=== PATIENT | male | born 1945 | race Caucasian/White ===

== ENCOUNTER 2021-07-06 01:17 | Emergency (ER) | payer MEDICARE ==
--- NOTE | 2021-07-06 01:46 | EDM.PDOC ---
<Trace Diaz - Last Filed: 07/06/21 07:31> ED HPI GENERAL MEDICAL PROBLEM - General Chief Complaint: Chest Pain Stated Complaint: CHEST PAINS Time Seen by Provider: 07/06/21 01:27 Source of Information: Reports: Patient, Family History Limitations: Reports: No Limitations - History of Present Illness INITIAL COMMENTS - FREE TEXT/NARRATIVE: Ian is a 76-year-old male presenting to the ED for evaluation of retrosternal chest pressure that started around 1800 hrs. today. The patient states that the pain is been fairly continuous although waxing and waning in intensity since the onset. Its not associated with any diaphoresis, nausea, or significant shortness of breath. The pain did seem to worsen when he reclined this evening. His took his blood pressure at home and it was quite high prompting them to come in for evaluation after talking to the nurse triage line. The patient has not seen a doctor for many years with the exception of a recent visit to the walk-in clinic after he had a dental procedure that had to be aborted because of hypertension. He is currently on no medications but did take 2 full size aspirin prior to coming in this evening. 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 At that time was also discovered that he had a systolic ejection murmur. Middle Chest Pain Score (Numeric/FACES): 4 - Related Data Allergies Allergy/AdvReac Type Severity Reaction Status Date / Time No Known Allergies Allergy Verified 07/06/21 01:50 Home Meds: Home Meds NK [No Known Home Meds] 03/05/18 [History] Past Medical History Musculoskeletal History: Reports: Neck Pain, Chronic Dermatologic History: Reports: Psoriasis Social & Family History - Caffeine Use Caffeine Use: Reports: Coffee, Soda, Tea ED ROS GENERAL - Review of Systems Review Of Systems: See Below Constitutional: Reports: No Symptoms HEENT: Reports: No Symptoms Respiratory: Reports: No Symptoms Cardiovascular: Reports: Chest Pain, Blood Pressure Problem Endocrine: Reports: No Symptoms GI/Abdominal: Reports: No Symptoms : Reports: No Symptoms Musculoskeletal: Reports: No Symptoms Skin: Reports: No Symptoms Neurological: Reports: No Symptoms Psychiatric: Reports: No Symptoms Hematologic/Lymphatic: Reports: No Symptoms Immunologic: Reports: No Symptoms ED EXAM, GENERAL - Physical Exam Exam: See Below Exam Limited By: No Limitations General Appearance: Alert, No Apparent Distress, Anxious Eye Exam: Bilateral Eye: EOMI, PERRL Nose: Normal Inspection Throat/Mouth: Normal Oropharynx, Normal Voice, No Airway Compromise Head: Atraumatic, Normocephalic Neck: Normal Inspection, Supple. No: Lymphadenopathy (R), Lymphadenopathy (L) Respiratory/Chest: No Respiratory Distress, Lungs Clear, Normal Breath Sounds, No Accessory Muscle Use. No: Crackles, Rales, Rhonchi, Wheezing Cardiovascular: Normal Peripheral Pulses, Regular Rate, Rhythm, Systolic Murmur (2/6 systolic ejection murmur heard in the left upper sternal border) Peripheral Pulses: 2+: Radial (L), Radial (R) GI/Abdominal: Normal Bowel Sounds, Soft, Non-Tender Extremities: Normal Inspection, Normal Range of Motion Neurological: Alert, Oriented, Normal Cognition, No Motor/Sensory Deficits Skin Exam: Warm, Dry #1 Interpretation EKG Date: 07/06/21 Time: 01:42 Rhythm: NSR Rate (Beats/Min): 59 Prospect: LAD-Left Prospect Deviation P-Wave: Present (Prolonged WA interval at 214 ms) QRS: Normal (LVH by voltage criteria) ST-T: Normal QT: Normal Comparison: NA - No Prior EKG Course - Re-Assessments/Exams Free Text/Narrative Re-Assessment/Exam: 07/06/21 02:41 reviewed the patient's labs showing a normal CBC with a leukocyte count of 8.9 and normal differential, hemoglobin of 15.8 with hematocrit of 47.6 and a platelet count of 231,000. Comprehensive metabolic panel is also normal with a sodium 141, potassium 4.4, chloride of 103, bicarbonate of 30, BUN of 20 with a creatinine of 0.9 and a glucose of 107. Calcium is 9.2, AST of 27, ALT of 27, and alkaline phosphatase of 59. The PT/INR is 10.3/1.0. The PTT is 24.9. D-dimer is mildly elevated at 574 which is within normal limits with age correction. High-sensitivity troponin resulted back at 740 which is significantly elevated indicating a non-ST elevated SC. Patient was started on IV heparin with a 4000 unit bolus and a rate of 12 units/kg/h and nitroglycerin IV as he still having chest pain at this time. EKG did not show any significant findings for ST elevation. Chest x-ray was reviewed and does not show any significant abnormalities. I did discuss the non-STEMI status with the patient and will continue to look for a suitable location to transfer the patient, however, at this time there are no beds available. He is on the wait list for [facility] and [facility]. 07/06/21 07:31 repeat troponin is now 901 which is still rising from his presentation. Patient is still on the wait list for several facilities as a non-STEMI. Care of the patient will be transferred from Dr. Diaz to Dr. Santacruz at 0730 hrs. while awaiting for transfer of the patient. Departure - Departure Disposition: DC/Tfer to Acute Hospital 02 Clinical Impression: Non-STEMI (non-ST elevated myocardial infarction), Essential hypertension Referrals: PCP,None [Primary Care Provider] - Forms: ED Department Discharge <Cliff Santacruz - Last Filed: 07/06/21 19:47> Past Medical History - Past Health History Medical/Surgical History: Denies Medical/Surgical History Social & Family History - Tobacco Use Tobacco Use Status *Q: Never Tobacco User Course - Vital Signs Last Recorded V/S: Last Vital Signs Temp 98.4 F 07/06/21 15:59 Pulse 61 07/06/21 17:58 Resp 16 07/06/21 18:00 BP 110/57 L 07/06/21 18:00 Pulse Ox 95 07/06/21 18:00 - Orders/Labs/Meds Orders: Active Orders 24 hr Category Date Time Status Chest 2V [CR] Stat Exams 07/06/21 01:27 Taken PTT,PARTIAL THROMBOPLSTIN TIME [COAG] Stat Lab 07/06/21 21:00 Ordered TROPONIN I HIGH SENSITIVITY [CHEM] Stat Lab 07/07/21 01:00 Ordered Heparin Sodium/D5W [Heparin 25,000 Units in D5W 500 ML] Med 07/06/21 02:45 Active 25,000 units in 500 ml IV TITRATE Morphine Med 07/06/21 09:48 Active 2 mg IVPUSH Q2H PRN Nitroglycerin/D5W [Nitroglycerin 25 MG/D5W 250 ML] Med 07/06/21 02:45 Active 25 mg in 250 ml IV TITRATE Sodium Chloride 0.9% [Normal Saline] 1,000 ml Med 07/06/21 03:30 Active IV ASDIRECTED Sodium Chloride 0.9% [Saline Flush] Med 07/06/21 02:35 Active 10 ml FLUSH ASDIRECTED PRN Isolation [COMM] Stat Oth 07/06/21 01:28 Ordered Saline Lock Insert [OM.PC] Routine Oth 07/06/21 02:35 Ordered EKG 12 Lead [EK] Routine Ther 07/06/21 01:27 Ordered Medication Orders Heparin Sodium/Dextrose (Heparin 25,000 Units In D5w 500 Ml) 25,000 units in 500 mls @ 20.088 mls/hr IV TITRATE CALVIN; Protocol Last Titration: 07/06/21 15:29 Dose: 16 units/kg/hr, 26.784 mls/hr Documented by: CHASITY Cosigned by: JAMI Titration: 07/06/21 09:56 Dose: 14 units/kg/hr, 23.436 mls/hr Documented by: CHASITY Cosigned by: ALLA Admin: 07/06/21 02:52 Dose: 12 units/kg/hr, 20.088 mls/hr Documented by: GUSTAVO Cosigned by: COLETTE Nitroglycerin/Dextrose (Nitroglycerin 25 Mg/D5w 250 Ml) 25 mg in 250 mls @ 6 mls/hr IV TITRATE CALVIN; Protocol Last Titration: 07/06/21 09:19 Dose: 3.33 mcg/min, 2 mls/hr Documented by: Titration: 07/06/21 07:46 Dose: 5 mcg/min, 3 mls/hr Documented by: Titration: 07/06/21 03:54 Dose: 3.33 mcg/min, 2 mls/hr Documented by: Admin: 07/06/21 02:50 Dose: 10 mcg/min, 6 mls/hr Documented by: GUSTAVO Sodium Chloride (Normal Saline) 1,000 mls @ 500 mls/hr IV ASDIRECTED CALVIN Morphine Sulfate (Morphine 2 Mg/Ml Syringe) 2 mg IVPUSH Q2H PRN PRN Reason: Pain Last Admin: 07/06/21 09:57 Dose: 2 mg Documented by: CHASITY Sodium Chloride (Sodium Chloride 0.9% 10 Ml Syringe) 10 ml FLUSH ASDIRECTED PRN PRN Reason: Keep Vein Open Last Admin: 07/06/21 02:57 Dose: 10 ml Documented by: GUSTAVO Labs: Laboratory Tests 07/06/21 07/06/21 07/06/21 Range/Units 01:40 01:40 01:40 WBC 8.9 (3.2-11.0) K/uL RBC 5.27 (4.14-5.76) M/uL Hgb 15.8 (12.9-16.9) Hct 47.6 (38.4-49.7) % MCV 90.3 (81.4-99.0) fL MCH 30.0 L (31.6-35.5) pg MCHC 33.2 (31.6-35.5) g/dL Plt Count 231 (130-375) K/uL Immature Gran % (Auto) 0.3 (0.0-0.7) % Neut % (Auto) 47.1 (36-66) % Lymph % (Auto) 38.2 (24-44) % [place] % (Auto) 9.1 H (2-6) % Eos % (Auto) 4.5 H (2-4) % Baso % (Auto) 0.8 (0-1) % Neut # (Auto) 4.20 (1.0-7.6) K/uL Lymph # (Auto) 3.40 H (0.8-3.3) K/uL [place] # (Auto) 0.81 (0.20-0.90) K/uL Eos # (Auto) 0.40 (0.00-0.40) K/uL Baso # (Auto) 0.07 (0.00-0.10) K/uL Immature Gran # (Auto) 0.03 (0.00-0.23) K/uL PT 10.3 (9.2-10.6) sec INR 1.0 APTT 24.9 (21.4-31.8) sec D-Dimer, Quantitative 573.99 H (0.0-500.0) ng/mL Sodium (140-148) mmol/L Potassium (3.6-5.2) mmol/L Chloride (100-108) mmol/L Carbon Dioxide (21-32) mmol/L Anion Gap (5.0-14.0) mmol/L BUN (7-18) mg/dL Creatinine (0.8-1.3) mg/dL Est Cr Clr Drug Dosing mL/min Estimated GFR (MDRD) (>60) Glucose (74-106) mg/dL Calcium (8.5-10.1) mg/dL Total Bilirubin (0.2-1.0) mg/dL AST (15-37) U/L ALT (12-78) U/L Alkaline Phosphatase (46-116) U/L Troponin I High Sens (<=60.3) pg/mL Total Protein (6.4-8.2) g/dL Albumin (3.4-5.0) g/dL Globulin (2.3-3.5) g/dL Albumin/Globulin Ratio (1.2-2.2) Influenza Type A RNA (NEGATIVE) RSV RNA (INAAT) (NEGATIVE) Influenza Type B RNA (NEGATIVE) SARS-CoV-2 RNA (ANETTE) (NEGATIVE) 07/06/21 07/06/21 07/06/21 Range/Units 01:40 01:59 05:40 WBC (3.2-11.0) K/uL RBC (4.14-5.76) M/uL Hgb (12.9-16.9) Hct (38.4-49.7) % MCV (81.4-99.0) fL MCH (31.6-35.5) pg MCHC (31.6-35.5) g/dL Plt Count (130-375) K/uL Immature Gran % (Auto) (0.0-0.7) % Neut % (Auto) (36-66) % Lymph % (Auto) (24-44) % [place] % (Auto) (2-6) % Eos % (Auto) (2-4) % Baso % (Auto) (0-1) % Neut # (Auto) (1.0-7.6) K/uL Lymph # (Auto) (0.8-3.3) K/uL [place] # (Auto) (0.20-0.90) K/uL Eos # (Auto) (0.00-0.40) K/uL Baso # (Auto) (0.00-0.10) K/uL Immature Gran # (Auto) (0.00-0.23) K/uL PT (9.2-10.6) sec INR APTT (21.4-31.8) sec D-Dimer, Quantitative (0.0-500.0) ng/mL Sodium 141 (140-148) mmol/L Potassium 4.4 (3.6-5.2) mmol/L Chloride 103 (100-108) mmol/L Carbon Dioxide 30 (21-32) mmol/L Anion Gap 7.6 (5.0-14.0) mmol/L BUN 20 H (7-18) mg/dL Creatinine 0.9 (0.8-1.3) mg/dL Est Cr Clr Drug Dosing 64.26 mL/min Estimated GFR (MDRD) > 60 (>60) Glucose 107 H (74-106) mg/dL Calcium 9.2 (8.5-10.1) mg/dL Total Bilirubin 0.3 (0.2-1.0) mg/dL AST 27 (15-37) U/L ALT 27 (12-78) U/L Alkaline Phosphatase 59 (46-116) U/L Troponin I High Sens 739.8 H* 908.8 H* (<=60.3) pg/mL Total Protein 7.3 (6.4-8.2) g/dL Albumin 3.8 (3.4-5.0) g/dL Globulin 3.5 (2.3-3.5) g/dL Albumin/Globulin Ratio 1.1 L (1.2-2.2) Influenza Type A RNA Negative (NEGATIVE) RSV RNA (INAAT) Negative (NEGATIVE) Influenza Type B RNA Negative (NEGATIVE) SARS-CoV-2 RNA (ANETTE) Negative (NEGATIVE) 07/06/21 07/06/21 07/06/21 Range/Units 08:56 12:01 14:58 WBC (3.2-11.0) K/uL RBC (4.14-5.76) M/uL Hgb (12.9-16.9) Hct (38.4-49.7) % MCV (81.4-99.0) fL MCH (31.6-35.5) pg MCHC (31.6-35.5) g/dL Plt Count (130-375) K/uL Immature Gran % (Auto) (0.0-0.7) % Neut % (Auto) (36-66) % Lymph % (Auto) (24-44) % [place] % (Auto) (2-6) % Eos % (Auto) (2-4) % Baso % (Auto) (0-1) % Neut # (Auto) (1.0-7.6) K/uL Lymph # (Auto) (0.8-3.3) K/uL [place] # (Auto) (0.20-0.90) K/uL Eos # (Auto) (0.00-0.40) K/uL Baso # (Auto) (0.00-0.10) K/uL Immature Gran # (Auto) (0.00-0.23) K/uL PT (9.2-10.6) sec INR APTT 42.1 H 45.8 H (21.4-31.8) sec D-Dimer, Quantitative (0.0-500.0) ng/mL Sodium (140-148) mmol/L Potassium (3.6-5.2) mmol/L Chloride (100-108) mmol/L Carbon Dioxide (21-32) mmol/L Anion Gap (5.0-14.0) mmol/L BUN (7-18) mg/dL Creatinine (0.8-1.3) mg/dL Est Cr Clr Drug Dosing mL/min Estimated GFR (MDRD) (>60) Glucose (74-106) mg/dL Calcium (8.5-10.1) mg/dL Total Bilirubin (0.2-1.0) mg/dL AST (15-37) U/L ALT (12-78) U/L Alkaline Phosphatase (46-116) U/L Troponin I High Sens 1815.1 H* (<=60.3) pg/mL Total Protein (6.4-8.2) g/dL Albumin (3.4-5.0) g/dL Globulin (2.3-3.5) g/dL Albumin/Globulin Ratio (1.2-2.2) Influenza Type A RNA (NEGATIVE) RSV RNA (INAAT) (NEGATIVE) Influenza Type B RNA (NEGATIVE) SARS-CoV-2 RNA (ANETTE) (NEGATIVE) 07/06/21 Range/Units 17:50 WBC (3.2-11.0) K/uL RBC (4.14-5.76) M/uL Hgb (12.9-16.9) Hct (38.4-49.7) % MCV (81.4-99.0) fL MCH (31.6-35.5) pg MCHC (31.6-35.5) g/dL Plt Count (130-375) K/uL Immature Gran % (Auto) (0.0-0.7) % Neut % (Auto) (36-66) % Lymph % (Auto) (24-44) % [place] % (Auto) (2-6) % Eos % (Auto) (2-4) % Baso % (Auto) (0-1) % Neut # (Auto) (1.0-7.6) K/uL Lymph # (Auto) (0.8-3.3) K/uL [place] # (Auto) (0.20-0.90) K/uL Eos # (Auto) (0.00-0.40) K/uL Baso # (Auto) (0.00-0.10) K/uL Immature Gran # (Auto) (0.00-0.23) K/uL PT (9.2-10.6) sec INR APTT (21.4-31.8) sec D-Dimer, Quantitative (0.0-500.0) ng/mL Sodium (140-148) mmol/L Potassium (3.6-5.2) mmol/L Chloride (100-108) mmol/L Carbon Dioxide (21-32) mmol/L Anion Gap (5.0-14.0) mmol/L BUN (7-18) mg/dL Creatinine (0.8-1.3) mg/dL Est Cr Clr Drug Dosing mL/min Estimated GFR (MDRD) (>60) Glucose (74-106) mg/dL Calcium (8.5-10.1) mg/dL Total Bilirubin (0.2-1.0) mg/dL AST (15-37) U/L ALT (12-78) U/L Alkaline Phosphatase (46-116) U/L Troponin I High Sens 3883.6 H* (<=60.3) pg/mL Total Protein (6.4-8.2) g/dL Albumin (3.4-5.0) g/dL Globulin (2.3-3.5) g/dL Albumin/Globulin Ratio (1.2-2.2) Influenza Type A RNA (NEGATIVE) RSV RNA (INAAT) (NEGATIVE) Influenza Type B RNA (NEGATIVE) SARS-CoV-2 RNA (ANETTE) (NEGATIVE) Meds: Medications Generic Name Dose Route Start Last Admin Trade Name Sammi PRN Reason Stop Dose Admin Heparin Sodium/Dextrose 25,000 units in 500 mls @ 20.088 mls/hr 07/06/21 02:45 07/06/21 15:29 Heparin 25,000 Units In D5w 500 Ml IV 16 units/kg/hr TITRATE CALVIN 26.784 mls/hr Titration Protocol 12 UNITS/KG/HR Nitroglycerin/Dextrose 25 mg in 250 mls @ 6 mls/hr 07/06/21 02:45 07/06/21 09:19 Nitroglycerin 25 Mg/D5w 250 Ml IV 3.33 mcg/min TITRATE CALVIN 2 mls/hr Titration Protocol 10 MCG/MIN Sodium Chloride 1,000 mls @ 500 mls/hr 07/06/21 03:30 Normal Saline IV ASDIRECTED CALVIN Morphine Sulfate 2 mg 07/06/21 09:48 07/06/21 09:57 Morphine 2 Mg/Ml Syringe IVPUSH 2 mg Q2H PRN Administration Pain Sodium Chloride 10 ml 07/06/21 02:35 07/06/21 02:57 Sodium Chloride 0.9% 10 Ml Syringe FLUSH 10 ml ASDIRECTED PRN Administration Keep Vein Open Discontinued Medications Generic Name Dose Route Start Last Admin Trade Name Sammi PRN Reason Stop Dose Admin Heparin Sodium (Porcine) 4,000 units 07/06/21 02:35 07/06/21 02:47 Heparin Sodium 5,000 Units/Ml Vial IVPUSH 07/06/21 02:36 4,000 units .BOLUS ONE Administration Heparin Sodium (Porcine) 1,000 units 07/06/21 09:50 07/06/21 09:55 Heparin Sodium 5,000 Units/Ml Vial IVPUSH 07/06/21 09:51 1,000 units .BOLUS ONE Administration Heparin Sodium (Porcine) 1,000 units 07/06/21 15:21 07/06/21 15:28 Heparin Sodium 5,000 Units/Ml Vial IVPUSH 07/06/21 15:22 1,000 units .BOLUS ONE Administration Departure - Departure Time of Disposition: 19:47 Reason for Transfer *Q: Primary PCI Indicated Condition: Fair Sepsis Event Note (ED) - Focused Exam Vital Signs: Vital Signs Temp Pulse Resp BP Pulse Ox 07/06/21 18:00 16 110/57 L 95 07/06/21 17:58 61 12 110/57 L 95 07/06/21 17:00 14 119/57 L 95 07/06/21 16:27 60 18 110/59 L 94 L 07/06/21 15:59 98.4 F 61 15 112/54 L 94 L 07/06/21 15:00 16 105/51 L 95 07/06/21 14:29 16 122/53 L 95 07/06/21 14:00 64 18 127/58 L 94 L 07/06/21 13:00 62 10 L 117/54 L 95 07/06/21 12:00 97.8 F 69 17 145/72 H 95 07/06/21 11:00 12 132/60 94 L 07/06/21 10:00 12 113/62 95 07/06/21 09:48 16 93/46 L 95 07/06/21 09:00 12 96/45 L 96 07/06/21 08:17 12 155/71 H 97 07/06/21 07:45 67 12 131/74 92 L - My Orders Last 24 Hours: My Active Orders 07/06/21 09:48 Morphine 2 mg IVPUSH Q2H PRN 07/06/21 21:00 PTT,PARTIAL THROMBOPLSTIN TIME [COAG] Stat 07/07/21 01:00 TROPONIN I HIGH SENSITIVITY [CHEM] Stat - Assessment/Plan Last 24 Hours: My Active Orders 07/06/21 09:48 Morphine 2 mg IVPUSH Q2H PRN 07/06/21 21:00 PTT,PARTIAL THROMBOPLSTIN TIME [COAG] Stat 07/07/21 01:00 TROPONIN I HIGH SENSITIVITY [CHEM] Stat Plan: Assessment Acuity = acute Site and laterality = non-ST elevation myocardial infarction Etiology = unknown probable underlying coronary artery disease Manifestations = none Location of injury = Home Lab values = CBC, CMP unremarkable COVID was negative influenza negative RSV negative troponin initially 738 high-sensitivity 2 hours later 908 6 hours later 1815 and 6 hours later [id number] Plan He started on a heparin drip he did take aspirin at home he did receive a heparin bolus, nitro drip has controlled his pain with 2 mg of morphine. He has been pain-free all day. Called and discussed the case with Dr. Mcclain hospitalist [facility] kindly excepted the patient at 1940 will be transported via EMS ground This note was dictated using [employer] voice recognition software please call with any questions on syntax or grammar.
[2021-07-06] MEDS ORDERED: Sodium Chloride 0.9% 10 ML Syringe FLUSH PRN (02:35)
[2021-07-06] MEDS ORDERED: Heparin Sodium 5,000 Units/ML Vial IVPUSH ONE ×3 (02:35→15:21)
[2021-07-06] MEDS ORDERED: Nitroglycerin/D5W 25 MG/250 ML BOTTLE IV SCH (02:45)
[2021-07-06] MEDS ORDERED: Heparin Sodium/D5W 25,000 UNITS/500 ML BAG IV SCH (02:45)
[2021-07-06 02:48] LABS: CORONAVIRUS COVID-19 NAA NEGATIVE (NEGATIVE)
[2021-07-06] MEDS ORDERED: Sodium Chloride 0.9% 1,000 ML IV SCH (03:30)
[2021-07-06] MEDS ORDERED: Morphine 2 MG/ML SYRINGE IVPUSH PRN (09:48)
--- NOTE | 2021-07-08 09:36 | CR ---
CHEST: 2 view CLINICAL HISTORY:Chest pain COMPARISON:None FINDINGS: The heart size, pulmonary vascularity and hilar structures are normal. No infiltrate effusion or pneumothorax is seen. IMPRESSION: No acute cardiopulmonary process.
== END 2021-07-06 20:41 ==
LOC: JP.ED 01:17
DX: I21.4 Non-ST elevation (NSTEMI) myocardial infarction (principal); I10 Essential (primary) hypertension; Z20.822 Contact with and (suspected) exposure to COVID-19
CPT/HCPCS: 0241U; 36415; 71046; 80053; 84484; 85025; 85379; 85610; 85730; 93005; 96365; 96366; 96367; 96375; 99285; J1644; J2270; J3490